=== PATIENT | male | born 1980 | race Native Hawaiian/Other Pacific Islander ===

== ENCOUNTER 2017-02-07 05:47 | Emergency (ER) | payer BC ==
[~2017-02-07] VITALS: Ht 167.6 cm; Wt 81.6 kg
--- NOTE | 2017-02-07 06:20 | NUR ---
36 yo male bb self. pt is alert x 3, c/o feeling dizzy/ light headed this morning. pt ambulated to er bed with steady gait, skin warm and dry, rr even and unlabored. awaiting orders from provider
--- NOTE | 2017-02-07 06:40 | NUR ---
20g iv started, blood sample obtained and sent to lab. medicated pt as ordered
[2017-02-07] MEDS ORDERED: IV NS 0.9% 1,000 ML ONE (06:44)
[2017-02-07] MEDS ORDERED: IV SET PRIMARY 1 EA INFUS.SET MC ONE (06:44)
--- NOTE | 2017-02-07 06:53 | NUR ---
urine sample obtained and sent to lab
[2017-02-07] MEDS ORDERED: IV NS 0.9% 1,000 ML BAG IV ONE (07:00)
[2017-02-07 07:10] LABS: BASOPHILS % (AUTO) 0.2 % (0.0-2.0); EOSINOPHILS # (AUTO) 0.1 /CMM (0.0-0.7); EOSINOPHILS % (AUTO) 1.5 % (0.0-6.0); HEMATOCRIT 43 % (39-51); HEMOGLOBIN 15.2 g/dL (13.5-17.5); LYMPHOCYTES # (AUTO) 2.3 /CMM (0.8-4.8); LYMPHOCYTES % (AUTO) 22.5 % (20.0-44.0); MEAN CORPUSCULAR HEMOGLOBIN 30 PG (26.0-33.0); MEAN CORPUSCULAR HGB CONC 36 g/dl (31.0-36.0); MEAN CORPUSCULAR VOLUME 85 fL (80-96); MONOCYTES # (AUTO) 0.8 /CMM (0.1-1.30); MONOCYTES % (AUTO) 7.7 % (2.0-12.0); NEUTROPHILS # (AUTO) 6.9 /CMM (1.8-8.9); NEUTROPHILS % (AUTO) 68.1 % (43.0-81.0); PLATELET COUNT (AUTO) 336 /CMM (150-450); RDW COEFFICIENT OF VARIATION 12.4 (11.5-15.0); RED BLOOD CELL COUNT(AUTO) 5.01 MIL/uL (4.5-6.0); WHITE BLOOD COUNT (AUTO) 10.1 K/uL (4.3-11.0)
[2017-02-07 07:20] LABS: APPEARANCE,URINE CLEAR (CLEAR); BILIRUBIN,URINE NEGATIVE (NEGATIVE); BLOOD, URINE NEGATIVE Ery/uL (NEGATIVE); COLOR,URINE YELLOW (YELLOW); KETONES,URINE NEGATIVE (NEGATIVE); LEUKOCYTE ESTERASE ,URINE NEGATIVE (NEGATIVE); NITRITE, URINE NEGATIVE (NEGATIVE); PROTEIN,URINE NEGATIVE (NEGATIVE); UGLUCOSE NEGATIVE (NEGATIVE); UROBILINOGEN,URINE 0.2 EU/dL (0.2)
[2017-02-07 07:21] LABS: CALCIUM, SERUM 9.1 mg/dL (8.5-10.1); CREATININE 1.3 mg/dL (0.6-1.3); POTASSIUM 3.3 mmol/L (3.5-5.1)
[2017-02-07] MEDS ORDERED: oxyCODONE IR immediate release 5 MG CAPSULE PO ONE (09:00)
[2017-02-07 09:20] VITALS: BP 119/88
--- NOTE | 2017-02-07 09:21 | NUR ---
Patient discharged to home in stable condition. Written and verbal after care instructions given. Patient verbalizes understanding of instruction.IV removed. Catheter intact and site benign. Pressure and 4x4 applied to site. No bleeding noted. ambulatory with steady gait. no further complaints.
== END 2017-02-07 09:21 | disposition home or self-care (01) ==
LOC: ER 05:47
DX: I95.9 Hypotension, unspecified (principal); E86.0 Dehydration; M10.9 Gout, unspecified
CPT/HCPCS: 36415; 71010-TC; 80048-TC; 81000-TC; 85025-TC; A4606; J7030; Z7610